=== PATIENT | female | born 1960 | race Caucasian/White ===

== ENCOUNTER → 2021-05-02 | Outpatient (CLI) | payer OTHER ==
[~2021-05-02] MED LIST: AMOXICILLIN500 MG PO; FLAGYL500 MG PO; FLEXERIL10 MG PO; HYDROCODONE BIT1 T11 PO; LISINOPRIL10 MG PO; MOTRIN800 MG PO; NAPROSYN500 MG PO; NORCO 325 MG-51 TAB PO; PREDNICOT20 MG PO; VOLTAREN50 M1 PO; ZOFRAN4 MG PO
== END | disposition home or self-care (01) ==
LOC: COVID19 16:03
PROVIDERS: ATTEND Internal Medicine
DX: U07.1 COVID-19 (principal)

== ENCOUNTER 2023-05-02 15:49 | Emergency (ER) | payer OTHER ==
[~2023-05-02] VITALS: Ht 167.6 cm; Wt 127.0 kg
== END 2023-05-02 20:04 ==
LOC: ED 15:49
DX: I46.9 Cardiac arrest, cause unspecified (principal); I10 Essential (primary) hypertension; Z91.041 Radiographic dye allergy status; Z91.013 Allergy to seafood; Z90.49 Acquired absence of other specified parts of digestive tract; Z98.51 Tubal ligation status